=== PATIENT | male | born 1995 | race Caucasian/White ===

== ENCOUNTER 2018-07-21 08:09 | Outpatient (CLI) | payer OTHER | END 2018-07-21 08:11 | disposition home or self-care (01) | LOC: SONOGRAMA 08:09 | DX: K82.8 Other specified diseases of gallbladder (principal) ==

== ENCOUNTER 2019-01-25 10:29 | Outpatient (CLI) | payer OTHER | END 2019-01-25 10:31 | disposition home or self-care (01) | LOC: SONOGRAMA 10:29 | DX: R22.9 Localized swelling, mass and lump, unspecified (principal) ==